=== PATIENT | male | born 1975 | race Asian ===

== ENCOUNTER 2017-09-09 21:25 | Emergency (ER) | payer BC ==
[2017-09-09] MEDS: MORPHINE SULFATE 10 MG/ML VIAL. IM (22:38)
[2017-09-09] MEDS: diazePAM 5 MG TABLET PO (22:38)
[2017-09-09] MEDS: ONDANSETRON ODT 4 MG TAB.RAPDIS. PO ×2 (23:00)
== END 2017-09-10 00:15 | disposition home or self-care (01) ==
LOC: ER 09-10 00:15
DX: M79.652 Pain in left thigh (principal); M54.32 Sciatica, left side; R11.0 Nausea
CPT/HCPCS: 96372; 99283; J2270; Q0162